=== PATIENT | female | born 1955 | race Two or more races ===

== ENCOUNTER 2022-12-05 08:06 | Day surgery (SDC) | payer OTHER ==
[~2022-12-05] VITALS: Ht 170.2 cm; Wt 77.1 kg
[~2022-12-05 08:06] MED LIST: DIOVAN320 MG PO; LIPIT PO; NORVASC5 MG PO; [UNRECOGNIZED DRUG - OTHER] PO
[2022-12-05] MEDS ORDERED: NAPR500T14 PO (16:58)
[2022-12-05] MEDS ORDERED: MORGIDOX100 MG PO (16:58)
== END 2022-12-05 20:35 | disposition home or self-care (01) ==
LOC: CIR.AMB 08:06 → EDBD 09:15 → CIR.AMB 17:30
PROVIDERS: ATTEND Obstetrics & Gynecology
DX: D25.0 Submucous leiomyoma of uterus (principal); N84.0 Polyp of corpus uteri; N95.0 Postmenopausal bleeding; N88.2 Stricture and stenosis of cervix uteri; Z20.822 Contact with and (suspected) exposure to COVID-19; I10 Essential (primary) hypertension; E11.9 Type 2 diabetes mellitus without complications